=== PATIENT | female | born 1980 | race Caucasian/White ===

== ENCOUNTER 2016-06-18 11:21 | Emergency (ER) | payer OTHER ==
[2016-06-18 11:44] VITALS: BP 141/94; PULSE 60; TEMP 98.3; BMI 296.0
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
== END 2016-06-18 13:21 | disposition home or self-care (01) ==
LOC: JERFT 11:21
DX: J70.5 Respiratory conditions due to smoke inhalation (principal); X08.8XXA Exposure to other specified smoke, fire and flames, initial encounter; Y93.89 Activity, other specified; Y92.9 Unspecified place or not applicable; Y99.0 Civilian activity done for income or pay; F17.210 Nicotine dependence, cigarettes, uncomplicated
CPT/HCPCS: 82375; 99281-25

== ENCOUNTER 2017-01-09 17:12 | Emergency (ER) | payer OTHER ==
[2017-01-09 17:30] VITALS: BP 152/105; PULSE 79; TEMP 98.8; BMI 31.3
[2017-01-09] MEDS ORDERED: KETOROLAC TROMETHAMINE 60 MG/2 ML VIAL IM ONE (18:44)
[2017-01-09] MEDS ORDERED: KETOROLAC TROMETHAMINE 60 MG/2 ML VIAL ONE (18:47)
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
== END 2017-01-09 19:18 | disposition home or self-care (01) ==
LOC: JERFT 17:12
PROC: 3E0233Z Introduction of Anti-inflammatory into Muscle, Percutaneous Approach (ICD-10-PCS; principal; 2017-01-09)
DX: M54.16 Radiculopathy, lumbar region (principal); S80.811A Abrasion, right lower leg, initial encounter; W18.39XA Other fall on same level, initial encounter; Y35.811A Legal intervention involving manhandling, law enforcement official injured, initial encounter; Y93.89 Activity, other specified; Y92.89 Other specified places as the place of occurrence of the external cause; Y99.0 Civilian activity done for income or pay
CPT/HCPCS: 99281-25

== ENCOUNTER 2018-03-22 05:13 | Day surgery (SDC) | payer OTHER ==
[2018-03-20 13:42] VITALS: BMI 37.1
[~2018-03-22 05:13] MED LIST: BACITRACIN 15 GM TUBE TOPICAL OINTMENT TP ONE
[2018-03-22] MEDS ORDERED: BACITRACIN 15 GM TUBE TOPICAL OINTMENT ONE (11:23)
[2018-03-22] MEDS ORDERED: MIDAZOLAM HCL 2 MG/2 ML SINGLE DOSE VIAL ONE ×2 (11:38)
[2018-03-22] MEDS ORDERED: ROCURONIUM BROMIDE 50 MG/5 ML VIAL ONE (11:52)
[2018-03-22] MEDS ORDERED: ceFAZolin SODIUM 1 GM VIAL IVPB ONE (11:55)
[2018-03-22] MEDS ORDERED: ceFAZolin SODIUM 1 GM VIAL ONE (12:11)
[2018-03-22] MEDS ORDERED: THROMBIN (BOVINE) 5,000 UNIT VIAL TP ONE (12:28)
[2018-03-22] MEDS ORDERED: BACITRACIN 50,000 UNITS VIAL TP ONE (12:28)
--- NOTE | 2018-03-22 14:10 | OP ---
Operative Note - Note: Operative Date: 03/22/18 Pre-Operative Diagnosis: Postlaminectomy syndrome Operation: R T10 hemilamiectomy, placement of epidural paddle electrode, pulse generator implant, fluoroscopy Findings: Extremely deep exposure to T spine Implants: [employer] Penta paddle electrode [id number]; [employer] Proclaim 7 Elite generator [id number] Surgeon: Tom Chung Tutor Coordinator: Neetu Hinojosa Anesthesiologist/MANAGER ETHICS: Isabell Rivero MD Anesthesia: General Specimens Removed: none Estimated Blood Loss (mls): 25 Operative Report Dictated: Yes
[2018-03-22] MEDS ORDERED: ONDANSETRON 4 MG/2 ML VIAL IVPUSH PRN ×2 (14:19→15:55)
[2018-03-22] MEDS ORDERED: oxyCODONE HCL 5 MG TABLET PO PRN (14:21)
[2018-03-22] MEDS ORDERED: HYDROmorphone HCl 2 MG/ML VIAL IVPB PRN (14:22)
[2018-03-22] MEDS ORDERED: diazePAM 5 MG TABLET PO SCH (14:30)
[2018-03-22] MEDS ORDERED: D5-1/2NS+20 MEQ KCL - 20 MEQ/1,000 ML INFUS.BAG IV SCH (14:30)
--- NOTE | 2018-03-22 15:05 | PN ---
Progress Note (short form) - Note Progress Note: NEUROSURGERY In PACU AF, VSS, O2 sat 100% Back and r buttock incisional pain Stimulator covering R leg well PE: General- unremarkable CN- intact; Motor- 5/5 B LE; Sensation- intact LT Dressings intact Postop pain meds eRX'd PO abx x 1 week D/C instructions given
[2018-03-22] MEDS ORDERED: LACTATED RINGERS SOLUTION 1,000 ML IV SCH (16:00)
[2018-03-22] MEDS ORDERED: oxyCODONE HCL 5 MG TABLET PO ONE (16:30)
[2018-03-22] MEDS ORDERED: oxyCODONE HCL 10 MG SUSTAINED ACTING TABLET ONE (16:32)
[2018-03-22 16:53] VITALS: BP 140/60; PULSE 70; TEMP 97.9
[2018-03-22] MEDS ORDERED: DOCUSATE SODIUM 100 MG CAPSULE (FP) PO SCH (22:00)
--- NOTE | 2018-03-23 08:11 | OP ---
DATE OF OPERATION: 03/22/2018 PREOPERATIVE DIAGNOSIS: 1. Post laminectomy syndrome. 2. Multilevel lumbar degenerative disk disease with back pain and right greater than left lower extremity radiculopathy. POSTOPERATIVE DIAGNOSIS: 1. Post laminectomy syndrome. 2. Multilevel lumbar degenerative disk disease with back pain and right greater than left lower extremity radiculopathy. ATTENDING SURGEON: Tom Chung MD WOODWORKING BENCH CARPENTER: ALEC Orantes ANESTHESIA: General endotracheal. ANESTHESIOLOGIST: Isabell Rivero MD PROCEDURE: 1. Placement of epidural paddle electrode from the right-sided T10 hemilaminectomy (72380). 2. Placement in the right buttock region of generator (70671). 3. Intraoperative programming, first hour (59868-22). 4. Intraoperative fluoroscopy for localization and paddle electrode placement (76444-92). FINDINGS: 1. Epidural fibrosis near midline at T8-T9. 2. Extremely deep thoracic spine exposure. IMPLANTS: 1. [employer] Penta epidural paddle electrode, serial no. [id number]. 2. Remote access generator, Proclaim 7 Elite, serial no. [id number]. INDICATIONS: The patient is a 37-year-old female with history of lumbar laminectomy and diskectomy. Several years earlier, she sustained another work-related injury with back pain and lumbar radiculopathy. MRI demonstrated multilevel degenerative disk disease. Because of intractable symptoms and failure of conservative treatment, she underwent a spinal cord stimulator trial and had significant improvement in her symptoms. She is now consented for right-sided hemilaminectomy at T10 for placement of epidural paddle electrode and generator implant. The risks of the procedure include, but are not limited to, bleeding, infection, dural tear with CSF leak, neurological injury, increased thromboembolic risks, and the risks of general anesthesia. The patient understands the indications for procedure, the procedure in detail, risks and benefits, and alternative treatments of her lumbar condition, and wished to proceed. No guarantees were given for a favorable outcome. PROCEDURE IN DETAIL: After the patient was taken to the operating room, she was placed in the supine position. After general anesthesia was induced and appropriate monitoring lines were placed, she was turned onto a prone position on a Shawn frame. All pressure points were checked and padded. Lumbar thoracic spine and right buttock region were cleaned with alcohol and prepped with Betadine. After localizing fluoroscopic imaging was obtained, approximately a 2-inch incision was opened over T10 lamina. Extremely deep exposure was encountered. A self-retaining retractor was inserted. Subperiosteal dissection was carried out on the right side only with periosteal elevator monopolar electrocautery. Another deeper retractor was inserted, and partial right-sided hemilaminectomy was carried out at T10 that is including undercutting the spinous process essentially to gain access to her central spinal canal. At this point, a Penta electrode epidural paddle was placed in the epidural space, but it either veered extremely right or extremely left. There was clearly some epidural fibrosis at T8-T9 level. Upon repositioning on several attempts, finally one was able to get the electrode to be just predominantly right-sided, but was a top of the midline electrode contact point to be just at and to the left of midline on the top. The top electrode goes into the bottom of the vertebral artery T8 and the remaining electrodes contact point covered the T9 vertebral body. This was a similar position during the trial where the patient had success. The wounds were irrigated with antibiotic and irrigation. At this point, the right buttock incision was opened, and the tunneler was used from the thoracic to lumbar incision. The anchors were then placed on the epidural paddle electrode leads and secured with 2-0 silk sutures. The electrode was then passed onto the right buttock incision. The right buttock incision was opened, and a pocket was created inferiorly and laterally. This small slightly bigger pocket was created because it was a non-rechargeable generator which is larger in size. The wound was irrigated with antibiotic and irrigation. The generator lead was inserted into the generator. The epidural paddle electrode lead was inserted into the generator, and the impedance was checked and all impedance was good at all 20 contact points. The torsion was used to lock down the epidural electrode into the generator. The generator was placed into the pocket with most of the access wire being placed anterior to the generator. At this point, the wounds were irrigated with antibiotic-containing irrigation. The impedance was checked once again, and they were all satisfactory. Fluoroscope was used throughout the procedure to check the position of the epidural paddle electrode with the final picture showing once again the electrode to be in satisfactory position. The dorsal thoracic fascia was then closed with 0 Vicryl suture after it was irrigated with antibiotic-containing irrigation. Subcutaneous fascia of both incisions was closed with 3-0 Vicryl suture, and skin was closed with 4-0 Vicryl running subcuticular sutures. Steri-Strips and sterile occlusive dressing were applied. The patient tolerated the procedure well, was turned back to the supine position and extubated. She received 1 dose of 2 g Ancef. All needle and lap counts were correct. The OR timeout procedure was followed. Triny MAURICIO/[id number]
--- NOTE | 2018-03-24 15:18 | SURG ---
Surgery Rn Clinical Note Rn Clinical: Neetu Hinojosa PA-C Date of Service: 03/22/18 Diagnosis: Postlaminectomy syndrome Procedure: R T10 hemilamiectomy, placement of epidural paddle electrode, pulse generator implant, fluoroscopy I was present for the entirety of the operative procedure. For further detail, please refer to operative report. Visit type - Case Type Case Type: Scheduled - Emergency Emergency Visit: No - New patient This patient is new to me today: Yes Date on this admission: 03/22/18
== END 2018-03-22 17:00 | disposition home or self-care (01) ==
LOC: JASU-SURG 05:13
PROVIDERS: ATTEND Neurological Surgery
PROC: 4B01XVZ Measurement of Peripheral Nervous Stimulator, External Approach (ICD-10-PCS; 2018-03-22)
PROC: 0JH70BZ Insertion of Single Array Stimulator Generator into Back Subcutaneous Tissue and Fascia, Open Approach (ICD-10-PCS; principal; 2018-03-22 10:00)
PROC: 01HY0MZ Insertion of Neurostimulator Lead into Peripheral Nerve, Open Approach (ICD-10-PCS; 2018-03-22 10:00)
DX: M96.1 Postlaminectomy syndrome, not elsewhere classified (principal); M51.16 Intervertebral disc disorders with radiculopathy, lumbar region
CPT/HCPCS: 63655; 63685; 95972; C1778; L8679; 36415; 76000-TC-FY; 84703; 86850; 86900; 86901; 94760

== ENCOUNTER 2020-01-23 04:50 | Inpatient (IN) | payer OTHER ==
[2020-01-22 11:17] VITALS: BMI 36.0
--- OUTSIDE RECORDS SUMMARY | 2020-01-23 04:53 | XMS ---
:1980 Author Organization [facility] Care Team Providers Name Role Phone NED HOUSER MD Unavailable Unavailable NED HOUSER MD Unavailable NED HOUSER MD Unavailable Unavailable NED HOUSER MD Unavailable Unavailable DEEPAK RICE Unavailable Unavailable NED HOUSER MD Unavailable Unavailable NED HOUSER MD Unavailable Unavailable NED HOUSER MD Unavailable Unavailable Re-disclosure Warning The records that you are about to access may contain information from federally- assisted alcohol or drug abuse programs. If such information is present, then the following federally mandated warning applies: This information has been disclosed to you from records protected by federal confidentiality rules (42 CFR part 2). The federal rules prohibit you from making any further disclosure of this information unless further disclosure is expressly permitted by the written consent of the person to whom it pertains or as otherwise permitted by 42 CFR part 2. A general authorization for the release of medical or other information is NOT sufficient for this purpose. The Federal rules restrict any use of the information to criminally investigate or prosecute any alcohol or drug abuse patient.The records that you are about to access may contain highly sensitive health information, the redisclosure of which is protected by Article 27-F of the [facility] Public Health law. If you continue you may haveaccess to information: Regarding HIV / AIDS; Provided by facilities licensed or operated by the [facility] Office of Mental Health; or Provided by the [facility] Office for People With Developmental Disabilities. If such information is present, then the following [facility] mandated warning applies: This information has been disclosed to you from confidential records which are protected by state law. State law prohibits you from making any further disclosure of this information without the specific written consent of the person to whom it pertains, or as otherwise permitted by law. Any unauthorized further disclosure in violation of state law may result in a fine or longterm sentence or both. A general authorization for the release of medical or other information is NOT sufficient authorization for further disclosure. Allergies and Adverse Reactions Type Description Substance Reaction Status Data Source(s ) D No Known Medication No Known [place] [facility] - Allergies Medication [facility] Drug allergy No Known Allergies No Known Allergies None [facility] Encounters Encounter Providers Location Date Indications Data Source(s ) Outpatient 11/23/2019 LOWER BACK PAIN NO [place] 11:00:00 AM EDT [facility] LOWER BACK PAIN NO [facility] Outpatient Attender: DWAYNE 08/09/2019 12:43:00 Z03.818 [facility] DEEPAK VazquezAdmitter: EDT Health Care DEEPAK RICE Corporatio n E.Referrer: DEEPAK RICE Z03.818 Emergency Attender: NED CHAMBERS XR-ED 08/24/2018 [place]OMITING/ [place] [facility] HOUSER MDAttender: 01:06:00 PM EDT DIARRHEA [facility] NED HOUSER - 08/24/2018 Hospital Center MDAttender: 03:15:00 PM EDT NED HOUSER MDAttender: NED HOUSER MDAttender: NED HOUSER MDAttender: NED HOUSER MDAttender: NED HOUSER MD VOMITING/ DIARRHEA Medications Medication Brand Start Product Dose Route Administrative Pharmacy [facility] Indications Reaction Description Data Name Date Form Instructions Instructions Source(s) vilazodone Viibry hydrochlori d 40 2018 [facility] ri de 40 MG mg 01:17: an - Oral Tablet oral 28 PM [facility] Viibryd 40 tablet EDT [facility] oral Hospital tablet Center Zolpidem zolpid tartrate em 2019 [facility] 12.5 MG 12.5 01:17: an - Extended mg [address] [facility] Oral Tablet tablet Hospit al zolpidem , [place] 12.5 mg extend oral ed tablet, releas extended e release brexpiprazo Rexult le 2 MG i 2 mg 2018 [facility] Oral Tablet oral 01:16: an - Rexulti 2 tablet [address] [place] [address] [facility] gabapentin [id number] 2018 [facility] 01:16: an - 27 PM [facility] oxyCODONE [id number] 2016 [facility] 09:02: an - 22 AM [facility] Ativan [id number] 2016 [facility] 09:02: an - 16 AM [facility] LaMICtal [id number] 2016 [facility] 09:02: an - 05 AM [facility] Insurance Providers Payer name Policy type Policy ID Covered Covered alliance party's Policy P william / Coverage alliance party ID relationship to Kamara Inf ormation type kamara PMA [id number] SP [id number] POMCO RISK [id number] PT [id number] MGMT UMR TPA [id number] PT [id number] [facility] [id number] JBPHH MED.CONT.UN IT BC PPO [id number] SP [id number] VISION RISK [id number] SP [id number] SERVICES, C. Blue Cross [id number] [facility] Problems, Conditions, and Diagnoses Code Display Name Description Problem Type Effective Data Sour ce(s) Dates Z98. Other specified Z98.890 Diagnosis 11/23/2019 [place] postprocedural 10:33:00 AM Hospital states EDT M48.07 Spinal stenosis, M48.07 Diagnosis 11/23/[address] [place] lumbosacral region 10:33:00 AM Hospi lashawn EDT M51.27 Other M51.27 Diagnosis 11/23/2019 [place] intervertebral disc 10:33:00 AM Hosp ital displacement, EDT lumbosacral region M48.061 Spinal stenosis, M48.061 Diagnosis 11/23/[address] [place] lumbar region 10:33:00 AM Hospital without neurogenic EDT claudication M51.26 Other M51.26 Diagnosis 11/23/2019 [place] intervertebral disc 10:33:00 AM Hosp ital displacement, EDT lumbar region Z03.818 Encounter for ENCNTR FOR OBS Diagnosis 08/09/2019 Mannie landis observation for FOR SUSP EXPSR 12:43:00 PM [facility] suspected exposure TO OTH BIOLG EDT Care to other biological AGENTS RULED OUT Corporation agents ruled out Surgeries/Procedures Procedure Description Date Indications Data Source(s) COLLECTION VENOUS BLOOD 08/24/2018 [place] [facility] - VENIPUNCTURE 01:23:00 PM EDT [facility] Results ID Date Data Source [id number] 01/18/2020 09:15:00 AM EDT [facility] Name Value Range Interpretation Description Data Sup porting Code Source(s) Document(s ) SARS [facility] coronavirus 2 RNA This lab was ordered by [facility] and reported by [facility]. ID Date Data Source [id number] 08/09/2019 12:00:00 AM EDT [facility] Name Value Range Interpretation Code Description Data Latisha rce(s) Supporting Document(s ) 2019-nCoV [facility] RNA XXX CARROLL+probe- Imp This lab was ordered by [facility] and reported by [facility]. ID Date Data Source [id number] 08/24/2018 02:04:00 PM EDT [facility] [id number] [facility] Name Value Range Interpretation Description Data Source(s ) Supporting Code Document(s ) UA Color Light Normal (applies [place] Yellow to non-numeric [facility] - (08/24/18 results) [facility] Bili Negative Normal (applies [place] (08/24/18 to non-numeric [facility] - 2:04 PM) results) [facility] UA Glucose Negative Normal (applies [place] (08/24/18 to non-numeric [facility] - 2:04 PM) results) [facility] UA Nitrite Negative Normal (applies [place] (08/24/18 to non-numeric [facility] - 2:04 PM) results) [facility] UA Protein 20 mg/dL [facility] UA Ketones Negative Normal (applies [place] (08/24/18 to non-numeric [facility] - 2:04 PM) results) [facility] UA pH 8.5 Above high CO normal [facility] UA Normal Normal (applies CO Urobilinogen (08/24/18 to non-numeric [facility] - 2:04 PM) results) [facility] UA Blood Negative [place] *NA*( [facility] 2:04 [facility] PM) [facility] UA Appear Clear Normal (applies [place] (08/24/18 to non-numeric [facility] - 2:04 PM) results) [facility] UA Leuk Est Negative Normal (applies [place] (08/24/18 to non-numeric [facility] - 2:04 PM) results) [facility] UA Spec Grav 1.016 Normal (applies [facility] ID Date Data Source [id number] 08/24/2018 01:23:00 PM EDT [facility] [id number] [facility] Name Value Range Interpretation Description Data Source(s ) Supporting Code Document(s ) MCHC 34.3 g/dL Normal (applies to [facility] results) [facility] [place] MCH 31.0 pg Normal (applies to [facility] results) [facility] [place] MPV 8.4 fL Normal (applies to [facility] results) [facility] [place] RBC 4.77 Normal (applies to [facility] x10(6)/mc [facility] L results) [facility] [place] RDW 14.4 % Normal (applies to [facility] results) [facility] Platelet 340 Normal (applies to [facility] x10(3)/mc non-[facility] L results) [facility] [place] MCV 90.5 fL Normal (applies to [facility] results) [facility] [place] Hct 43.2 % Normal (applies to [place] [facility] non-[facility] results) [facility] WBC 9.4 Normal (applies to [place] [facility] x10(3)/mc non-[facility] L results) [facility] Hgb 14.8 g/dL Normal (applies to [place] [facility] non-[facility] results) Hospital Center ID Date Data Source [id number] 08/24/2018 01:23:00 PM EDT [facility]ian - [facility] [id number] Hospital Center Name Value Range Interpretation Description Data Source(s ) Supporting Code Document(s ) Glucose Lvl 125 Above high normal [place] [facility] mg/dL - [facility] Creatinine 0.85 Normal (applies [place] [facility] an mg/dL to [facility] results) [facility] AGPK 14.7 Normal (applies [place] [facility] [place] to non-[facility] results) [facility] BUN 9 mg/dL Normal (applies [place] [facility] [place] to non-[facility] results) [facility] CO2 24 Normal (applies [place] [facility] n mmol/L to [facility] results) [facility] Sodium Lvl 140 Normal (applies [place] [facility] an mmol/L to non-[facility] results) [facility] Chloride 105 Normal (applies [place] [facility] n mmol/L to [facility] results) [facility] Potassium Lvl 3.7 Normal (applies [place] [facility] mmol/L to non-[facility] results) [facility] Calcium Lvl 9.6 Normal (applies [place] [facility] francy mg/dL to non-[facility] results) [facility] AST 32 Normal (applies [place] [facility] n unit/L to non-[facility] results) [facility] ALT 30 Normal (applies [place] [facility] [place] unit/L to non-[facility] results) [facility] Total Protein 7.4 g/dL Normal (applies [place] [facility] to non-[facility] results) [facility] Albumin Lvl 4.6 g/dL Normal (applies [place] [facility] [place] to non-[facility] results) [facility] Alk Phos 85 Normal (applies [place] [facility] n unit/L to non-[facility] results) [facility] Bili Total 0.50 Normal (applies [place] [facility] an mg/dL to non-[facility] results) Hospital Center ID Date Data Source [id number] 08/24/2018 01:23:00 PM EDT [facility] [id number] Hospital Center Name Value Range Interpretation Description Data Source(s ) Supporting Code Document(s ) Beta hCG Neg Normal (applies to [place] [facility] Ql (08/24/18 non-[facility] 1:23 PM) results) Hospital Center ID Date Data Source [id number] 08/24/2018 01:23:00 PM EDT [facility] [id number] Hospital Center Name Value Range Interpretation Code Description Data Latisha rce(s) Supporting Document(s ) EGFR AA [facility] EGFR Non [facility] - AA [facility] ID Date Data Source [id number] 08/24/2018 01:23:00 PM EDT [facility] [id number] [facility] [place] Name Value Range Interpretation Description Data Source(s ) Supporting Code Document(s ) Lymph 2.4 Normal (applies [place] [facility] n Absolute x10(3)/mc to non-numeric - [facility] L results) [facility] Menard 0.6 Normal (applies [place] [facility] [place] Absolute x10(3)/mc to non-numeric [facility] L results) [facility] Neutro 6.3 Normal (applies [place] [facility] n Absolute x10(3)/mc to non-[facility] L results) [facility] Baso Percent 0.7 % Normal (applies [place] [facility] ho to non-[facility] results) [facility] Neutro 66.8 % Normal (applies [place] [facility] n Percent to non-[facility] results) [facility] Eos Absolute 0.0 Normal (applies [place] [facility] ho x10(3)/mc to non-numeric - [facility] L results) [facility] Lymph 25.8 % Normal (applies [place] [facility] n Percent to non-[facility] results) [facility] Baso 0.1 Normal (applies [place] [facility] n Absolute x10(3)/mc to non-numeric [facility] L results) Hospital [facility] Menard Percent 6.6 % Normal (applies [place] [facility] ho to non-numeric [facility] results) [facility] Eos Percent 0.1 % Normal (applies [place] [facility] francy to non-numeric [facility] results) [facility] Procedure Vital Signs ID Date Data Source UNK Name Value Range Interpretation Code Description Data Source(s) Diastolic blood 74 mm[Hg] Normal (applies to 74 mm[Hg] N [place] [facility] - pressure non-numeric results) [facility] Systolic blood 119 mm[Hg] Normal (applies to 119 mm[Hg] [place] [facility] - pressure non-numeric results) [facility] Mean blood 89 mm[Hg] 89 mm[Hg] [place] [facility] n - pressure [facility] Peripheral Pulse 82 bpm Normal (applies to 82 bpm [place] [facility] - Rate non-numeric results) [facility] Body weight 105.000 kg 105.000 kg [place] [facility] an - Measured [facility] Body height 170.000 cm 170.000 cm [place] [facility] an - [facility] Respiratory rate 20 br/min Normal (applies to 20 br/min [place] [facility] - non-numeric results) [facility] Diastolic blood 65 mm[Hg] Normal (applies to 65 mm[Hg] N [place] [facility] - pressure non-numeric results) [facility] Systolic blood 105 mm[Hg] Normal (applies to 105 mm[Hg] [place] [facility] - pressure non-numeric results) [facility] Body surface area 2.23 2.23 [place] [facility] - [facility] Body weight 105 kg 105 kg [place] [facility] an - Measured [facility] Body temperature 97.4 [degF] Normal (applies to 97.4 [degF ] [place] [facility] - non-numeric results) [facility] r Peripheral Pulse 103 bpm Above high normal 103 bpm N [place] [facility] - Rate [facility] r Body height 170 cm 170 [facility] Mean blood 78 mm[Hg] 78 mm[Hg] [facility] n - pressure [facility] r Patient Treatment Plan of Care Planned Activity Planned Date Details Description Data Source (s) vilazodone hydrochloride 08/24/2018 [place] [facility] - 40 MG Oral Tablet 01:17:28 PM EDT [facility] Zolpidem tartrate 12.5 08/24/2018 [place] [facility] - MG Extended Release Oral 01:17:27 PM EDT [facility] brexpiprazole 2 MG Oral 08/24/2018 [place] [facility] - Tablet 01:16:36 PM EDT [facility] gabapentin 08/24/2018 [place] [facility] - 01:16:27 PM EDT [facility] oxyCODONE 12/01/2016 [place] [facility] - 09:02:22 AM EDT [facility] Ativan 12/01/2016 [place] [facility] - 09:02:16 AM EDT [facility] LaMICtal 12/01/2016 [place] [facility] - 09:02:05 AM EDT [facility]
[2020-01-23] MEDS ORDERED: BACITRACIN 15 GM TUBE TOPICAL OINTMENT ONE (07:38)
[2020-01-23] MEDS ORDERED: THROMBIN (BOVINE) 5,000 UNIT VIAL TP ONE ×2 (07:38→08:13)
[2020-01-23] MEDS ORDERED: methylPREDNISolone ACET (DEPO) 40 MG/1 ML VIAL ONE (07:38)
[2020-01-23] MEDS ORDERED: ROCURONIUM BROMIDE 50 MG/5 ML SYRINGE ONE (08:20)
[2020-01-23] MEDS ORDERED: PROPOFOL 20 ML ONE (08:20)
[2020-01-23] MEDS ORDERED: MIDAZOLAM HCL 2 MG/2 ML SINGLE DOSE VIAL ONE ×2 (08:20)
[2020-01-23] MEDS ORDERED: SUCCINYLCHOLINE CHLORIDE 200 MG/10 ML SYRINGE ONE (08:30)
[2020-01-23] MEDS ORDERED: ceFAZolin 2 GRAM PREMIX BAG IVPB ONE (08:54)
[2020-01-23] MEDS ORDERED: BACITRACIN 50,000 UNITS VIAL NR ONE (10:16)
[2020-01-23] MEDS ORDERED: BUPIVACAINE HCL/PF 0.5% (5 MG/ML) 30 ML VIAL IJ ONE (10:21)
--- NOTE | 2020-01-23 10:55 | OP ---
Operative Note - Note: Operative Date: 01/23/20 Pre-Operative Diagnosis: L L4-5 HNP, stenosis, fibrosis Operation: Partial L L4 and L5 hemilaminectomies, discectomy, microdissection Findings: epidural fibrosis, L L4-5 paracentral disc herniation, thecal sac and root compression Post-Operative Diagnosis: Same as Pre-op Surgeon: Tom Chung Clinical Data Management Director: Sd Smith Anesthesiologist/ORIENTATION & MOBILITY SPECIALIST: Isabell Rivero MD Anesthesia: General Specimens Removed: L L4-5 disc Estimated Blood Loss (mls): 50 Operative Report Dictated: Yes
[2020-01-23] MEDS ORDERED: oxyCODONE HCL 5 MG TABLET PO PRN (11:04)
[2020-01-23] MEDS ORDERED: ONDANSETRON 4 MG/2 ML VIAL IVPUSH PRN (11:04)
[2020-01-23] MEDS ORDERED: CEFAZOLIN 1 GM/D5W 1 GM/50 ML BAG IVPB SCH ×2 (11:15→17:00)
[2020-01-23] MEDS: diazePAM 5 MG TABLET PO SCH ×2 (12:54→21:51)
[2020-01-23] MEDS: D5-1/2NS+20 MEQ KCL - 20 MEQ/1,000 ML INFUS.BAG IV SCH (12:54)
[2020-01-23] MEDS: LACTATED RINGERS SOLUTION 1,000 ML IV SCH (12:55)
[2020-01-23] MEDS: DOCUSATE SODIUM 100 MG CAPSULE (FP) PO SCH ×2 (13:02→21:51)
--- NOTE | 2020-01-23 13:07 | OP ---
DATE OF OPERATION: 01/23/2020 PREOPERATIVE DIAGNOSES: 1. Prior right L4-5 and L5-S1 laminectomy. 2. Left L4-5 disk herniation with spinal stenosis with back pain, lumbar radiculopathy. POSTOPERATIVE DIAGNOSES: 1. Prior right L4-5 and L5-S1 laminectomy. 2. Left L4-5 disk herniation with spinal stenosis with back pain, lumbar radiculopathy. ATTENDING SURGEON: Tom Chung MD PROCEDURE: 1. Partial left L4 and L5 laminectomies for decompression of spinal canal, including medial facetectomy and foraminotomy (02380, [id number]). 2. Microsurgical dissection with operative microscope and microsurgical techniques (60090). 3. Lysis of epidural adhesion, L4-5. ANESTHESIA: General endotracheal anesthesia. ANESTHESIOLOGIST: PER Cano ESTIMATED BLOOD LOSS: 25 mL. FINDINGS: 1. Moderate to dense epidural fibrosis at L4-5 on the left. 2. Left L4-5 paracentral/foraminal disk protrusion with secondary stenosis. INDICATION: Patient is a 39-year-old female who has previously undergone right L4-5 and L5-S1 laminectomies for herniated disk. She also had a spinal cord stimulator implant for her chronic back pain and lumbar radiculopathy. Her pain had worsened recently with increasing lower back pain and left lower extremity radiculopathy. She has weakness in her left foot as well as numbness and tingling. She also has lower back pain. She is now consented for left L4-5 decompression. Risks of the procedure include but are not limited to bleeding, infection, dural tear with CSF leak, neurologic injury, increased thromboembolic risk and other risks of general anesthesia. The patient understands indications for the procedure, procedure in detail, risks and benefits and alternative for treatment of her lumbar condition and wished to proceed with surgery. No guarantees were given for a favorable outcome. 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 PROCEDURE IN DETAIL: After the patient was taken to the operating room, she was placed in the supine position. After general anesthesia was induced and appropriate monitoring lines were placed, she was turned into the prone position in a Shawn frame. All pressure points were checked and padded. The lumbar region was cleaned with alcohol and prepped with Betadine. Local anesthesia was obtained with a spinal needle in place, and the prior incision was used. Subperiosteal dissection was carried out on the left side only with a periosteal elevator and monopolar electrocautery. Paraspinal fibrosis was noted. The self-retaining retractor was inserted. At this point, after local anesthesia was obtained with a probe at first the L3-4 and then the L4-5 interlaminar space. After the position with the exposure was verified, partial laminectomy on the left side was carried out with a high-speed pneumatic drill, angled curet and Kerrison rongeur. Dense paraspinal epidural fibrosis was noted. Lysis of epidural adhesion was carried out with angled curet and Kerrison rongeur. This was performed with the use of the operating microscope for both illumination and magnification. Microsurgical techniques were utilized. The ligamentum flavum was dissected free and resected with a Kerrison rongeur. Foraminotomy was carried out with the angled curet and Kerrison rongeur as well. The dura was under chronic compression and was quite thinned out. The left L5 nerve root was followed towards the neural foramen at L5-S1. It was further decompressed with a Kerrison rongeur. With dense epidural fibrosis, lysis of adhesion was needed. It was carried out over the disk space on the left side at L4-5 because of the moderate to marked fibrosis. Meticulous dissection was carried out. Hemostasis was obtained with bipolar electrocautery. The fairly deep exposure was encountered which made the procedure more difficult. Disk annulus was incised with a No. 15 blade, and disk material was removed with a straight pituitary rongeur as well as upgoing pituitary rongeur. The disk material was sent for pathology analysis. After decompression was completed, the nerve root and thecal sac were under less pressure. The wound was irrigated with antibiotic irrigation. A Valsalva maneuver was performed, and there was no CSF leak. Because of the dense epidural fibrosis and the dissection carried out, a thin layer of DuraSeal was laid in the epidural space just as a precaution after a piece of Gelfoam was placed over the exposed dural surface. Paraspinal hemostasis was obtained with bipolar electrocautery. The dorsal lumbar fascia was closed with 0 Vicryl suture, subcutaneous fascia closed with 3-0 Vicryl suture and the skin was closed with 4-0 Vicryl running subcuticular suture. Steri-Strips and a sterile occlusive dressing were applied. The patient tolerated the procedure well and was moving bilateral lower extremities well in the recovery room. The patient's left lower extremity strength was improved after this procedure. The patient received 1 dose of 2 g of Ancef prior to the incision. All needle and lap counts were correct. The OR time for the procedure was followed. Triny MAURICIO/[id number] MTDD
--- NOTE | 2020-01-23 15:53 | PN ---
Progress Note (short form) - Note Progress Note: NEUROSURGERY In PACU Mild incisional pain No /A, N/V AF, VSS, O2 sat 98% Back- dressing intact General- unremarkable CN- intact; Motor- 5/5 b UE/LE including L DF; Sensation- intact LT Pain meds Wound care Findings and pt condition d/w mother by phone PT in am Adv diet, clears this dinner Light activity only
[2020-01-23] MEDS ORDERED: BSS (NA/CA/MG/K) BALANCED SALT SOLUTION OPHTH SOLN 15 ML BOTTLE ONE (15:57)
[2020-01-23] MEDS ORDERED: DEXAMETHASONE SOD PHOSPHATE 4 MG/1 ML VIAL IVPUSH ONE (16:13)
[2020-01-23] MEDS ORDERED: PT OWN MED DRAWER 7, Y5N ONE ×2 (17:31→18:49)
[2020-01-23] MEDS ORDERED: DEXTROSE 5%-WATER - 50 ML IVPB ONE (17:44)
[2020-01-23] MEDS ORDERED: ceFAZolin SODIUM 1 GM VIAL ONE (17:44)
[2020-01-23] MEDS: CEFAZOLIN 1 GM in DEXTROSE 5%-WATER - 50 ML IVPB SCH (17:49)
[2020-01-23] MEDS: CIPROFLOXACIN HCL 0.3% OPHTH 2.5ML BOTTLE OS SCH ×2 (18:51→21:51)
[2020-01-23] MEDS ORDERED: LAMOTRIGINE 200 MG PO SCH (22:00)
[2020-01-23] MEDS ORDERED: ZOLPIDEM TARTRATE 5 MG TABLET PO PRN (22:00)
[2020-01-23] MEDS ORDERED: GABAPENTIN 300 MG CAPSULE PO SCH (22:00)
[2020-01-23] MEDS ORDERED: PATIENT'S OWN MEDICATION (NON-FORMULARY) (Brexpiprazole [Rexulti] 2 MG) PO SCH (22:00)
[2020-01-24] MEDS ORDERED: DEXTROSE 5%-WATER - 50 ML IVPB ONE (01:37)
[2020-01-24] MEDS ORDERED: ceFAZolin SODIUM 1 GM VIAL ONE (01:37)
[2020-01-24] MEDS: CEFAZOLIN 1 GM in DEXTROSE 5%-WATER - 50 ML IVPB SCH (01:55)
[2020-01-24] MEDS: HYDROmorphone HCl 2 MG/ML VIAL IVPB PRN ×2 (02:34→12:59)
[2020-01-24] MEDS: diazePAM 5 MG TABLET PO SCH ×2 (05:50→13:31)
[2020-01-24] MEDS: DOCUSATE SODIUM 100 MG CAPSULE (FP) PO SCH ×2 (05:50→13:32)
[2020-01-24] MEDS: CIPROFLOXACIN HCL 0.3% OPHTH 2.5ML BOTTLE OS SCH ×3 (05:50→13:33)
--- NOTE | 2020-01-24 08:14 | PN ---
Progress Note (short form) - Note Progress Note: NEUROSURGERY In room on 8W Mild incisional pain No sciatica L eye irritation much better No H/A, N/V, able to void Wants to go home AF, VSS, O2 sat 98% Back- dressing intact, incision c/d/i/flat General- unremarkable CN- intact; Motor- 5/5 b UE/LE including L DF (mild L EHL weakness 4+); Sensation- intact LT Pain meds Wound care Findings d/w patient PT instructions Adv diet, regular Light activity only Care d/w pt f/u discussed
[2020-01-24] MEDS: D5-1/2NS+20 MEQ KCL - 20 MEQ/1,000 ML INFUS.BAG IV SCH (11:22)
--- NOTE | 2020-01-24 11:37 | PN ---
Progress Note, Physician Chief Complaint: s/p lumbar laminectomy under general anesthesia. History of Present Illness: post op day one - Current Medication List Current Medications: Active Medications Ciprofloxacin (Ciloxan 0.3% Eye Drops -) 1 drop OS Q4HWA [facility] Last Admin: 01/24/20 11:21 Dose: 1 drop Documented by: Diazepam (Valium -) 5 mg PO TID [facility] Last Admin: 01/24/20 05:50 Dose: 5 mg Documented by: Docusate Sodium (Colace -) 100 mg PO TID [facility] Last Admin: 01/24/20 05:50 Dose: 100 mg Documented by: Fentanyl (Sublimaze Injection -) 50 mcg IVPUSH [id number] PRN PRN Reason: PAIN-PACU ORDER X 4 DOSES ONLY Gabapentin (Neurontin -) 900 mg PO [facility] Last Admin: 01/23/20 21:51 Dose: 900 mg Documented by: Hydromorphone HCl (Dilaudid Vial -) 2 mg IVPB Q4H PRN PRN Reason: PAIN LEVEL 7 - 10 Last Admin: 01/24/20 02:34 Dose: 2 mg Documented by: Potassium Chloride/Dextrose/Sod Cl (D5-1/2ns+20 Meq Kcl -) 20 meq in 1,000 mls @ 100 mls/hr IV ASDIR [facility] Last Admin: 01/24/20 11:22 Dose: Not Given Documented by: Lactated Ringer's (Lactated Ringers Solution) 1,000 mls @ 125 mls/hr IV ASDIR [facility] Last Admin: 01/23/20 12:55 Dose: Not Given Documented by: Non-Formulary Medication (Brexpiprazole [Rexulti]) 2 mg PO [facility] Non-Formulary Medication (Lamotrigine [Lamotrigine Er]) 200 mg PO [facility] Ondansetron HCl (Zofran Injection) 4 mg IVPUSH Q6H PRN PRN Reason: NAUSEA AND/OR VOMITING Oxycodone HCl (Roxicodone -) 5 mg PO Q4H PRN PRN Reason: PAIN LEVEL 4 - 6 Zolpidem Tartrate (Ambien -) 10 mg PO HS PRN PRN Reason: INSOMNIA - Objective Vital Signs: Vital Signs Temperature 98.3 F 01/24/20 06:29 Pulse Rate 60 01/24/20 06:29 Respiratory Rate 20 20 06:29 Blood Pressure 102/59 L 01/24/20 06:29 O2 Sat by Pulse Oximetry (%) 96 01/24/20 06:29 Constitutional: Yes: Well Nourished Cardiovascular: Yes: WNL Respiratory: Yes: WNL Gastrointestinal: Yes: WNL Assessment/Plan Doing well, pain controlled, no nausea and vomiting, no adverse anesthetic complications. dept of anesthesia will sign off care at this time
[2020-01-24 12:29] VITALS: TEMP 98.6
[2020-01-24] MEDS: LACTATED RINGERS SOLUTION 1,000 ML IV SCH (13:04)
[2020-01-24 15:35] VITALS: BP 110/61; PULSE 78
--- NOTE | 2020-01-28 16:41 | PATH ---
Surgical Pathology Report Patient Name: HEATHER RAIN Med. Rec. #: [id number] /Age/Gender: 1980 (Age: 39) / F Account: [id number] Location: [facility] MED/SURG Taken: 01/23/2020 Received: 01/23/2020 Reported: 01/28/2020 Physicians: Tom Chung M.D. Specimen(s) Received L4-5 LEFT DISC Clinical History Lumbar radiculopathy Final Diagnosis L4-5 LEFT DISC, DISCECTOMY: FIBROCARTILAGINOUS TISSUE WITH FOCAL CHONDROCALCINOSIS. Electronically Signed Cricket Edgar M.D. Gross Description Received in formalin, labeled "L4-5 left disc" are multiple irregular portions of bone and soft measuring 1.5 x 1.5 x 0.2 cm in aggregate. The specimen is submitted in toto in one cassette. NANY/01/24/2020 suhail/01/24/2020
--- NOTE | 2020-01-29 14:38 | SURG ---
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 Partial Left L4 and L5 laminectomies for decompression of spinal canal, medi al facetectomy and foraminotomy 2. Microdissection with operative microscope and microsurgical techniques 3. Lysis of epidural adhesions L4/5 I was present for the entirety of the operative procedure. For further detail, please refer to operative report. Visit type - Case Type Case Type: Scheduled - Emergency Emergency Visit: No - New patient This patient is new to me today: Yes Date on this admission: 01/29/20 - Critical Care Critical Care patient: No
== END 2020-01-24 18:04 | disposition home or self-care (01) | DRG 310 ==
LOC: J2C 04:50 → J8W 12:50
PROVIDERS: ADMIT Neurological Surgery; ATTEND Neurological Surgery
PROC: 0SB20ZZ Excision of Lumbar Vertebral Disc, Open Approach (ICD-10-PCS; 2020-01-23)
PROC: 00NY0ZZ Release Lumbar Spinal Cord, Open Approach (ICD-10-PCS; 2020-01-23)
PROC: 01NB0ZZ Release Lumbar Nerve, Open Approach (ICD-10-PCS; principal; 2020-01-23 08:00)
DX: M51.16 Intervertebral disc disorders with radiculopathy, lumbar region (principal); M48.061 Spinal stenosis, lumbar region without neurogenic claudication; G96.12 Meningeal adhesions (cerebral) (spinal)
CPT/HCPCS: 72100-TC-FY; 84703; 88304-TC; 94010; 94760; 97116-GP; 97161-GP

== ENCOUNTER 2020-07-19 18:45 | Emergency (ER) | payer OTHER ==
[2020-07-19 18:58] VITALS: BP 151/98; PULSE 103; TEMP 99.9; BMI 36.0
== END 2020-07-19 19:52 | disposition home or self-care (01) ==
LOC: FER 18:45
DX: R00.2 Palpitations (principal)
CPT/HCPCS: 99282-25

== ENCOUNTER 2020-08-25 08:40 | Emergency (ER) | payer OTHER ==
[2020-08-25] MEDS ORDERED: IBUPROFEN 600 MG TABLET (FP) PO ONE ×2 (08:47→09:13)
[2020-08-25 09:02] VITALS: BP 152/100; PULSE 82; TEMP 98.5; BMI 39.1
== END 2020-08-25 10:54 | disposition home or self-care (01) ==
LOC: FER 08:40
DX: M54.2 Cervicalgia (principal)
CPT/HCPCS: 72125-TC; 99284-25

== ENCOUNTER 2021-01-31 19:10 | Emergency (ER) | payer OTHER ==
[2021-01-31 19:19] VITALS: BP 126/76; PULSE 89; TEMP 99; BMI 36.0
[2021-01-31] MEDS ORDERED: KETOROLAC TROMETHAMINE 30 MG/1 ML VIAL IM ONE (19:56)
[2021-01-31] MEDS ORDERED: LIDOCAINE 5% TOPICAL PATCH TP ONE (19:56)
[2021-01-31] MEDS ORDERED: KETOROLAC TROMETHAMINE 30 MG/1 ML VIAL ONE (20:09)
[2021-01-31] MEDS ORDERED: LIDOCAINE 5% TOPICAL PATCH ONE (20:09)
[2021-01-31] MEDS ORDERED: LIDOCAINE PATCH REMOVAL MC SCH (22:00)
== END 2021-01-31 21:47 | disposition home or self-care (01) ==
LOC: SUPCPDRO 19:10 → FER 19:10
PROC: 3E0233Z Introduction of Anti-inflammatory into Muscle, Percutaneous Approach (ICD-10-PCS; principal; 2021-01-31)
DX: M54.2 Cervicalgia (principal)
CPT/HCPCS: 72125-TC; 81025; 99284-25

== ENCOUNTER 2021-12-13 02:53 | Emergency (ER) | payer OTHER ==
[2021-12-13] MEDS ORDERED: CEPHALEXIN MONOHYDRATE 500 MG CAPSULE (UD) PO ONE (02:55)
[2021-12-13] MEDS ORDERED: DIPHTH,PERTUSS(ACELL),TET 0.5 ML DISP.SYRIN IM ONE ×2 (02:56→03:07)
[2021-12-13 03:00] VITALS: BP 119/77; PULSE 104; RESP 17; TEMP 99.1; BMI 35.9
[2021-12-13] MEDS ORDERED: CEPHALEXIN MONOHYDRATE 500 MG CAPSULE (UD) ONE (03:07)
== END 2021-12-13 03:18 | disposition home or self-care (01) ==
LOC: FER 02:53
PROC: 3E0234Z Introduction of Serum, Toxoid and Vaccine into Muscle, Percutaneous Approach (ICD-10-PCS; principal; 2021-12-13)
DX: S11.91XA Laceration without foreign body of unspecified part of neck, initial encounter (principal); W29.8XXA Contact with other powered hand tools and household machinery, initial encounter
CPT/HCPCS: 90715; 99284-25